=== PATIENT | male | born 1965 | race Caucasian/White ===

== ENCOUNTER 2017-09-18 06:12 | Emergency (ER) | payer BC ==
--- NOTE | 2017-09-18 06:58 | ER ---
Nurse's Notes [facility] Name: Raji Piedra Age: 51 yrs Sex: Male : 1965 Arrival Date: 09/18/2017 Time: 06:14 Bed 8 Private MD: Diagnosis: Essential (primary) hypertension Presentation: 09/18 06:26 Presenting complaint: Patient states: He woke up with a headache, pt's reported ea blood pressure at 210/120. Pt reports headache started about a week ago and it comes and goes. Transition of care: patient was not received from another setting of care. Onset of symptoms was September 18, 2017. Risk Assessment: Do you want to hurt yourself or someone else? Patient reports no desire to harm self or others. Initial Sepsis Screen: Does the patient meet any 2 criteria? No. Patient's initial sepsis screen is negative. Does the patient have a suspected source of infection? No. Patient's initial sepsis screen is negative. Care prior to arrival: None. 06:26 Method Of Arrival: Ambulatory ea 06:26 Acuity: ILIANA 3 ea Triage Assessment: 06:30 General: Appears in no apparent distress. Behavior is calm, cooperative, appropriate ea for age. Pain: Complains of pain in headache Pain does not radiate. Pain currently is 7 out of 10 on a pain scale. Quality of pain is described as aching. Neuro: Level of Consciousness is awake, alert, obeys commands, Oriented to person, place, time, situation. Cardiovascular: Patient's skin is warm and dry. Respiratory: Airway is patent Respiratory effort is even, unlabored, Respiratory pattern is regular, symmetrical. GI:. GI: No signs and/or symptoms were reported involving the gastrointestinal system. : No signs and/or symptoms were reported regarding the genitourinary system. Derm: Skin is pink, warm \T\ dry. Musculoskeletal: Circulation, motion, and sensation intact. Historical: - Allergies: 06:30 No Known Allergies; ea - Home Meds: 06:30 lisinopril 20 mg Oral tab 1 tab once daily [Active]; allopurinol 100 mg Oral tab 1 tab ea once daily [Active]; - PMHx: 06:30 Hypertension; Gout; ea - Immunization history:: Adult Immunizations up to date. - Social history:: Smoking status: Patient/guardian denies using tobacco. - Ebola Screening: : No symptoms or risks identified at this time. Screenin:32 Abuse screen: Denies threats or abuse. Nutritional screening: No deficits noted. ea Tuberculosis screening: No symptoms or risk factors identified. Fall Risk None identified. Assessment: 07:16 Reassessment: Patient appears in no apparent distress at this time. No changes from tw2 previously documented assessment. Patient and/or family updated on plan of care and expected duration. Pain level reassessed. Patient is alert, oriented x 3, equal unlabored respirations, skin warm/dry/pink. Vital Signs: 06:31 BP 130 / 70; Pulse 60; Resp 18; Temp 98.5; Pulse Ox 98% on R/A; Weight 121.11 kg; ea Height 5 ft. 7 in. (170.18 cm); Pain 7/10; 07:15 BP 128 / 63; Pulse 54; Resp 17; Pulse Ox 97% on R/A; tw2 06:31 Body Mass Index 41.82 (121.11 kg, 170.18 cm) ea ED Course: 06:14 Patient arrived in ED. ds1 06:18 Ed Felton, PREM is Primary Nurse. bp 06:23 Evangelista Rodas PA is PHCP. jr8 06:23 Anuj Li MD is Attending Physician. jr8 06:28 Triage completed. ea 06:32 Arm band placed on right wrist. Patient placed in an exam room, on a stretcher, on ea pulse oximetry. 06:33 Patient has correct armband on for positive identification. Bed in low position. Call ea light in reach. Side rails up X 1. 07:15 No provider procedures requiring assistance completed. Patient did not have IV access tw2 during this emergency room visit. Administered Medications: No medications were administered Outcome: 06:57 Discharge ordered by . jr8 07:16 Discharged to home ambulatory, with significant other. tw2 07:16 Condition: stable 07:16 Discharge instructions given to patient, significant other, Instructed on discharge instructions, follow up and referral plans. medication usage, Demonstrated understanding of instructions, follow-up care, medications, Prescriptions given X 1. 07:17 Patient left the ED. tw2 Signatures: Helen Wallace ds1 Evangelista Rodas PA PA jr8 Isabell Peters RN RN tw2 Vida Marks, RN RN ea Ed Felton, RN RN bp
--- NOTE | 2017-09-18 06:58 | EDPHYS ---
Physician Documentation [facility] Name: Raji Piedra Age: 51 yrs Sex: Male : 1965 Arrival Date: 09/18/2017 Time: 06:14 Bed 8 Private MD: ED Physician Anuj Li HPI: 09/18 06:53 This 51 yrs old Male presents to ER via Ambulatory with complaints of High jr8 Blood Pressure. 06:53 Onset: The symptoms/episode began/occurred acutely, this morning. Associated signs and jr8 symptoms: Pertinent positives: headache, Pertinent negatives: chest pain, dizziness, dyspnea, lightheadedness, nausea, visual changes, vomiting, weakness. Severity of symptoms: At its worst the blood pressure was moderate, in the emergency department the blood pressure is now normal. The blood pressure problem is resolved. It is unknown whether or not the patient has had similar symptoms in the past. The patient has not recently seen a physician. Patient stated that he woke up with headache this morning. Took his blood pressure and was in the 200s. Stated that he feels much better now. Blood pressure in exam room now 130/70. Historical: - Allergies: 06:30 No Known Allergies; ea - Home Meds: 06:30 lisinopril 20 mg Oral tab 1 tab once daily [Active]; allopurinol 100 mg Oral tab 1 tab ea once daily [Active]; - PMHx: 06:30 Hypertension; Gout; ea - Immunization history:: Adult Immunizations up to date. - Social history:: Smoking status: Patient/guardian denies using tobacco. - Ebola Screening: : No symptoms or risks identified at this time. ROS: 06:53 Eyes: Negative for injury, pain, redness, and discharge, ENT: Negative for injury, jr8 pain, and discharge, Neck: Negative for injury, pain, and swelling, Cardiovascular: Negative for chest pain, palpitations, and edema, Respiratory: Negative for shortness of breath, cough, wheezing, and pleuritic chest pain, Abdomen/GI: Negative for abdominal pain, nausea, vomiting, diarrhea, and constipation, Back: Negative for injury and pain, MS/Extremity: Negative for injury and deformity, Skin: Negative for injury, rash, and discoloration. 06:53 Neuro: Positive for headache, Negative for altered mental status, dizziness, gait disturbance, hearing loss, loss of consciousness, numbness, seizure activity, speech changes, syncope, near syncope, tingling, tinnitus, tremor, visual changes, weakness. Exam: 06:53 Eyes: Pupils equal round and reactive to light, extra-ocular motions intact. Lids and jr8 lashes normal. Conjunctiva and sclera are non-icteric and not injected. Cornea within normal limits. Periorbital areas with no swelling, redness, or edema. ENT: Nares patent. No nasal discharge, no septal abnormalities noted. Tympanic membranes are normal and external auditory canals are clear. Oropharynx with no redness, swelling, or masses, exudates, or evidence of obstruction, uvula midline. Mucous membranes moist. Neck: Trachea midline, no thyromegaly or masses palpated, and no cervical lymphadenopathy. Supple, full range of motion without nuchal rigidity, or vertebral point tenderness. No Meningismus. Cardiovascular: Regular rate and rhythm with a normal S1 and S2. No gallops, murmurs, or rubs. Normal PMI, no JVD. No pulse deficits. Respiratory: Lungs have equal breath sounds bilaterally, clear to auscultation and percussion. No rales, rhonchi or wheezes noted. No increased work of breathing, no retractions or nasal flaring. Abdomen/GI: Soft, non-tender, with normal bowel sounds. No distension or tympany. No guarding or rebound. No evidence of tenderness throughout. Back: No spinal tenderness. No costovertebral tenderness. Full range of motion. Skin: Warm, dry with normal turgor. Normal color with no rashes, no lesions, and no evidence of cellulitis. MS/ Extremity: Pulses equal, no cyanosis. Neurovascular intact. Full, normal range of motion. Neuro: Awake and alert, GCS 15, oriented to person, place, time, and situation. Cranial nerves II-XII grossly intact. Motor strength 5/5 in all extremities. Sensory grossly intact. Cerebellar exam normal. Normal gait. 07:03 ECG was reviewed by the Attending Physician. jr8 Vital Signs: 06:31 BP 130 / 70; Pulse 60; Resp 18; Temp 98.5; Pulse Ox 98% on R/A; Weight 121.11 kg; ea Height 5 ft. 7 in. (170.18 cm); Pain 7/10; 07:15 BP 128 / 63; Pulse 54; Resp 17; Pulse Ox 97% on R/A; tw2 06:31 Body Mass Index 41.82 (121.11 kg, 170.18 cm) ea MDM: 06:23 Patient medically screened. jr8 06:53 Data reviewed: vital signs, nurses notes, EKG, and as a result, I will discharge jr8 patient. Data interpreted: Pulse oximetry: on room air is 98 %. Interpretation: normal. Counseling: I had a detailed discussion with the patient and/or guardian regarding: the historical points, exam findings, and any diagnostic results supporting the discharge/admit diagnosis, the need for outpatient follow up, a family practitioner, to return to the emergency department if symptoms worsen or persist or if there are any questions or concerns that arise at home. ED course: Recommended blood pressure checks twice a day for 1 week and if he is having headaches. Patient is OOT and will continue to be for some time. Recommended that if blood pressure continues to elevated daily for one week or is having frequent spikes like that, that we will go ahead and increase his medication. Will give new prescription incase he ends up needing it . 09/18 06:52 Order name: EKG - Nurse/Tech; Complete Time: 07:08 EC:03 Rate is 57 beats/min. Rhythm is regular, Sinus bradycardia. QRS [place] is Normal. SC jr8 interval is normal at 152 msec. QRS interval is normal at 90 msec. QT interval is normal at 399 msec. No Q waves. T waves are Normal. No ST changes noted. Clinical impression: Normal ECG and Sinus bradycardia. Interpreted by me. Reviewed by me. Administered Medications: No medications were administered Disposition: 09/18/17 06:57 Discharged to Home. Impression: Essential (primary) hypertension. - Condition is Stable. - Discharge Instructions: Hypertension. - Prescriptions for lisinopril 40 mg Oral tablet - take 1 tablet by ORAL route once daily; 20 tablet. - Medication Reconciliation Form, Thank You Letter, Antibiotic Education, Prescription Opioid Use, Work release form form. - Follow up: Private Physician; When: 10 - 14 days; Reason: Recheck today's complaints, Continuance of care, Re-evaluation by your physician. - Problem is new. - Symptoms have improved. Addendum: 09/22/2017 07:28 Co-signature as Attending Physician, Anuj Li MD I agree with the assessment and w a plan of care. Signatures: Evangelista Rodas PA PA jr8 Isabell Peters RN RN tw2 Vida Marks RN Anuj Gage ea, MD MD wa Corrections: (The following items were deleted from the chart) 09/18 07:17 06:57 09/18/2017 06:57 Discharged to Home. Impression: Essential (primary) tw2 hypertension. Condition is Stable. Forms are Medication Reconciliation Form, Thank You Letter, Antibiotic Education, Prescription Opioid Use. Follow up: Private Physician; When: 10 - 14 days; Reason: Recheck today's complaints, Continuance of care, Re-evaluation by your physician. Problem is new. Symptoms have improved. jr8
--- NOTE | 2017-09-20 07:47 | EKG ---
Test Date: 2017-09-18 Test Time: 06:55:47 Boiler Coverer: APOLO MEASUREMENT RESULTS: Intervals: Rate: 57 OR: 152 QRSD: 90 QT: 410 QTc: 399 [place]: P: 51 OR: 152 QRS: 9 T: 39 INTERPRETIVE STATEMENTS: Sinus bradycardia Otherwise normal ECG No previous ECG available for comparison Electronically Signed On 09-20-17 07:47:17 CDT by Jose Eduardo Trujillo
== END 2017-09-18 07:17 | disposition home or self-care (01) ==
LOC: ER 06:12
DX: I10 Essential (primary) hypertension (principal)
CPT/HCPCS: 93005; 99283